=== PATIENT | male | born 1970 | race American Indian/Alaskan Native ===

== ENCOUNTER 2020-08-10 03:48 | Emergency (ER) | payer SELFPAY ==
--- NOTE | 2020-08-10 04:25 | Event Note ---
ED Screening Note ED Screening Note: Patient was discovered to be in altered stated per EMS after eating edibles. Patient prefers to sleep at this time. Will not cooperate with history. He is protecting airway. Vital signs are stable. Screening exam performed and completed. NO indication of emergent condition at this time. Will keep patient on monitor. This initial assessment/diagnostic orders/clinical plan/treatment(s) is/are subject to change based on patients health status, clinical progression and re- assessment by fellow clinical providers in the ED. Further treatment and workup at subsequent clinical providers discretion. Patient/guardian urged not to elope from the ED as their condition may be serious if not clinically assessed and managed. Initial orders include: cardiac/pulse ox monitoring.
[2020-08-10] MEDS ORDERED: SODIUM CHLORIDE 0.9% 1000 ML 1,000 ML IV ONE ×2 (07:22→08:29)
[2020-08-10] MEDS ORDERED: LORazepam 2 MG/ML VIAL IV ONE ×2 (07:35→09:42)
[2020-08-10] MEDS ORDERED: SUCCINYLCHOLINE CHLORIDE 200 MG/10 ML INJ MDV ONE (07:47)
[2020-08-10] MEDS ORDERED: ETOMIDATE 20 MG/10 ML INJ IV ONE ×2 (07:47→08:10)
[2020-08-10] MEDS ORDERED: LORazepam 2 MG/ML VIAL ONE (07:48)
[2020-08-10] MEDS ORDERED: SUCCINYLCHOLINE CHLORIDE 200 MG/10 ML INJ MDV IV ONE (08:00)
[2020-08-10 08:03] LABS: Basophils % (Auto) 0.3 % (0.0-1.8); Eosinophils % (Auto) 0.1 % (0.0-4.3); Hematocrit 37.8 % (35.5-45.6); Hemoglobin 13.1 gm/dl (11.8-15.2); Lymphocytes # (Auto) 0.4 K/mm3 (1.2-5.4); Lymphocytes % (Auto) 5.3 % (13.4-35.0); Mean Corpuscular HGB Conc 35 % (32-34); Mean Corpuscular Volume 89 fl (84-94); Monocytes # (Auto) 0.4 K/mm3 (0.0-0.8); Monocytes % (Auto) 5.2 % (0.0-7.3); Platelet Count 187 K/mm3 (140-440); Red Blood Count 4.24 M/mm3 (3.65-5.03); Red Cell Distribution Width 12.6 % (13.2-15.2)
[2020-08-10] MEDS ORDERED: LIP THERAPY VASELINE TP PRN (08:14)
[2020-08-10] MEDS ORDERED: MINERAL OIL/PETROLATUM, WHITE OPHTH OINT 3.5 GM OU PRN (08:14)
[2020-08-10 08:15] LABS: INR 1.18 (0.87-1.13)
[2020-08-10 08:23] LABS: Alanine Aminotransferase 39 units/L (7-56); Albumin 3.8 g/dL (3.9-5); BUN/Creatinine Ratio 12; Bilirubin,Direct 0.2 mg/dL (0-0.2); Blood Urea Nitrogen 6 mg/dL (9-20); Calcium 7.7 mg/dL (8.4-10.2); Hemolysis Index 22
--- NOTE | 2020-08-10 08:27 | Emergency Department Report ---
ED Altered Mental Status HPI - General Chief Complaint: Altered Mental Status Stated Complaint: AMS/DRUG INGESTED Time Seen by Provider: 08/10/20 04:23 Source: EMS Mode of arrival: Stretcher Limitations: Altered Mental Status - History of Present Illness Initial Comments: This is a 49-year-old male who arrived at or about 4 AM this morning. He was presumed to have had an edible cannabinol ingestion. He was screened by the prior emergency physician but no initial medical screening tests were ordered. It would appear staff was waiting on sobriety: ED Screening Note: Patient was discovered to be in altered stated per EMS after eating edibles. Patient prefers to sleep at this time. Will not cooperate with history. He is protecting airway. Vital signs are stable. Screening exam performed and completed. NO indication of emergent condition at this time. Will keep patient on monitor. I did not receive a specific signout or advisory. On my initial evaluation, the patient was quite lethargic; an altered mental status work-up was ordered. Laboratory work-up and CT of the head was pending. Apparently, the patient would not cooperate with phlebotomy. I was not informed of this problem with the blood draw. On patient reassessment, he appeared to be more obtunded albeit agitated. He was noted to have a PROFESSOR OF ENGLISH shunt. It was decided that elective intubation was necessary to facilitate CT and further medical care. No further information concerning the patient's past medical history was available. No records were found in our EMR system. MD Complaint: altered mental status -: hour(s) Severity: severe Consistency of Symptoms: getting worse Context: drug abuse Associated Symptoms: other (Unable to obtain) - Related Data Allergies Allergy/AdvReac Type Severity Reaction Status Date / Time No Known Allergies Allergy Unverified 08/10/20 08:37 ED Review of Systems ROS: Stated complaint: AMS/DRUG INGESTED Other details as noted in HPI Comment: Unobtainable due to pts medical conditions ED Past Medical Hx - Past Medical History Previous Medical History?: Yes - Social History Smoking Status: Unknown if ever smoked Substance Use Type: Marijuana ED Physical Exam - General Limitations: Altered Mental Status General appearance: obtunded - Head Head exam: Present: atraumatic, normocephalic - Eye Eye exam: Present: normal appearance. Absent: scleral icterus - ENT ENT exam: Present: mucous membranes moist - Neck Neck exam: Present: normal inspection - Respiratory Respiratory exam: Present: normal lung sounds bilaterally. Absent: respiratory distress - Cardiovascular Cardiovascular Exam: Present: regular rate, normal rhythm. Absent: systolic murmur, diastolic murmur, rubs, gallop - GI/Abdominal GI/Abdominal exam: Present: soft, normal bowel sounds. Absent: distended, tenderness, guarding - Rectal Rectal exam: Present: deferred - Extremities Exam Extremities exam: Present: normal inspection. Absent: calf tenderness - Back Exam Back exam: Present: other (Did not visualize) - Neurological Exam Neurological exam: Present: alert, altered, other (Examination appeared to be nonfocal on limited neuro exam. Teleneurologist gave the patient an NIH stroke score of 30) - Psychiatric Psychiatric exam: Present: agitated - Skin Skin exam: Present: warm, dry, intact, normal color. Absent: rash - Level of Consciousness 1a. Level of Consciousness: alert/keenly responsive - LOC Questions 1b. LOC Questions: answers no questions correctly - LOC Command 1c. LOC Commands: performs no tasks correctly - Best Gaze 2. Best Gaze: forced deviation - Visual 3. Visual: no visual loss - Facial Palsy 4. Facial Palsy: normal symmetrical movement - Motor Arm 5a. Motor Arm Left: no drift 5b. Motor Arm Right: no drift - Motor Leg 6a. Motor Leg Left: no drift 6b. Motor Leg Right: no drift (Disregard the above stroke scoring. Stroke is not suspected.) - Limb Ataxia 7. Limb Ataxia: absent - Sensory 8. Sensory: normal - Best Language 9. Best Language: no aphasia - Dysarthria 10. Dysarthria: normal - Extinction and Inattention 11. Extinction/Inattention: no abnormality - Scoring Total Score: 6 Stroke Severity: Moderate Stroke ED Course Vital Signs 08/10/20 08/10/20 08/10/20 04:12 07:01 07:17 Pulse Rate 75 75 76 Respiratory 16 20 20 Rate Blood Pressure Blood Pressure 109/62 124/55 [Right] O2 Sat by Pulse 98 98 95 Oximetry 08/10/20 08/10/20 08/10/20 07:20 07:42 07:45 Pulse Rate 75 69 Respiratory 17 Rate Blood Pressure Blood Pressure [Right] O2 Sat by Pulse 98 Oximetry 08/10/20 08/10/20 08/10/20 08:35 09:00 09:32 Pulse Rate 86 79 90 Respiratory 20 18 Rate Blood Pressure 135/72 Blood Pressure 167/90 [Right] O2 Sat by Pulse 98 98 Oximetry 08/10/20 08/10/20 08/10/20 09:45 10:00 10:04 Pulse Rate 92 H 94 H Respiratory 16 21 22 Rate Blood Pressure 127/103 102/82 Blood Pressure [Right] O2 Sat by Pulse 98 Oximetry 08/10/20 08/10/20 08/10/20 10:15 10:30 10:45 Pulse Rate 96 H 103 H Respiratory 18 20 Rate Blood Pressure 140/102 86/67 151/94 Blood Pressure [Right] O2 Sat by Pulse Oximetry - Reevaluation(s) Reevaluation #1: Teleneurologist stroke score. However stroke is not suspected. I do not think it is largely applicable. # Scores Time of exam and NIHSS (): 08-10-2020, 06:48 Level of Consciousness 1a: [3] = Responds only with reflex motor or unresponsive LOC Questions 1b: [2] = Answers neither correctly LOC Commands 1c: [2] = Performs neither correctly Best Gaze 2: [2] = Forced deviation Visual 3: [0] = No visual loss Facial Palsy 4: [0] = Normal symmetrical movements Motor Arm Left 5a: [4] = No movement Motor Arm Right 5b: [4] = No movement Motor Leg Left 6a: [4] = No movement Motor Leg Right 6b: [4] = No movement Limb Ataxia 7: [0] = Absent Sensory 8: [2] = Severe to total sensory loss Best Language 9: [3] = Mute Dysarthria 10: [0] UN = Intubated or other physical barrier NIHSS Total: 30 08/10/20 11:40 Reevaluation #2: Chest x-ray did show a left-sided patch consistent with no pneumonia. The patient was found to have a lactic acid level of over 5. He was given a bolus of saline. Cefepime and vancomycin were ordered. Vancomycin was not received by the pharmacy by the time of patient transfer. He did get the cefepime. Endotracheal tube was in good position. Patient was closely monitored. The nurse did have some blood pressure lability with propofol but discontinuance was not required. At the moment of transfer the patient's blood pressure was trending down and the nurse informed me that she shut off the propofol. I directed her to give the patient 2 mg of Ativan IV prior to transport which I believe was given. I spoke initially with the neuro editorial writer at [facility]. They did not have beds there ultimately I spoke with Dr. Bedoya the neuro editorial writer at [facility]. He was very kind to accept this patient for further care and evaluation in the neurointensive unit. I did receive a consult by the teleneurologist who stated that he could not exclude increased intracranial pressure on the basis of his interpretation of the CT and clinical exam. However the radiologist did read the CT as showing no acute process. On reassessment the patient"s pupils were perhaps slightly mydriatic but they were clearly reactive to light bilaterally. There was no disconjugate gaze or deviation at all. Patient was moving all of his extremities. Therefore additional sedation was judicious prior to transfer. He remained in soft wrist restraints. 08/10/20 11:54 - Intubation Time Out Performed: No Sedative: Etomidate Paralytic: Succinylcholine Laryngoscope: Damion Size: 4 Assist Device Used: other ([place] scope) Tube Secured Depth (cm): 24 Tube Secured Location: teeth Tube Placement Confirmation: visualized tube passing t Patient Tolerated Procedure: well Intubation Complications: none Additional Comments: Initial attempt was direct laryngoscopy with MAC 4 blade. However even to maximum length only the epiglottis was seen. This is not improved by cricoid pressure. There was no deoxygenation whatsoever. Patient had Ambu bag assistance. We proceeded to glide scope technique directly. A single attempt achieve very good glottic visualization and intubation without difficulty. The tube was secured at 24 cm at the teeth. Positive end-tidal CO2 and bilateral breath sounds were noted. - Lab Data Result diagrams: 08/10/20 07:48 08/10/20 10:16 Lab Results 08/10/20 08/10/20 08/10/20 Range/Units 07:44 07:48 07:48 WBC 7.8 (4.5-11.0) K/mm3 RBC 4.24 (3.65-5.03) M/mm3 Hgb 13.1 (11.8-15.2) gm/dl Hct 37.8 (35.5-45.6) % MCV 89 (84-94) fl MCH 31 (28-32) pg MCHC 35 H (32-34) % RDW 12.6 L (13.2-15.2) % Plt Count 187 (140-440) K/mm3 Lymph % (Auto) 5.3 L (13.4-35.0) % [place] % (Auto) 5.2 (0.0-7.3) % Eos % (Auto) 0.1 (0.0-4.3) % Baso % (Auto) 0.3 (0.0-1.8) % Lymph # (Auto) 0.4 L (1.2-5.4) K/mm3 [place] # (Auto) 0.4 (0.0-0.8) K/mm3 Eos # (Auto) 0.0 (0.0-0.4) K/mm3 Baso # (Auto) 0.0 (0.0-0.1) K/mm3 Seg Neutrophils % 89.1 H (40.0-70.0) % Seg Neutrophils # 7.0 (1.8-7.7) K/mm3 PT 14.8 (12.2-14.9) Sec. INR 1.18 H (0.87-1.13) APTT 29.0 (24.2-36.6) Sec. ABG pH (7.350-7.450) pH Units ABG pCO2 mm Hg ABG pO2 (80.0-90.0) mm Hg ABG HCO3 (20.0-26.0) mmol/L ABG O2 Saturation (95.0-99.0) % ABG O2 Content (0.0-44) ABG Base Excess (-2.0-3.0) mmol/L ABG Hemoglobin (14.0-18.0) gm/dl ABG Carboxyhemoglobin (0.0-5.0) % ABG Methemoglobin (0.0-1.5) % Oxyhemoglobin (95.0-99.0) % FiO2 % Sodium (137-145) mmol/L Potassium (3.6-5.0) mmol/L Chloride (98-107) mmol/L Carbon Dioxide (22-30) mmol/L Anion Gap mmol/L BUN (9-20) mg/dL Creatinine (0.8-1.3) mg/dL Estimated GFR ml/min BUN/Creatinine Ratio % Glucose (75-100) mg/dL POC Glucose 117 H (70-105) mg/dL Lactic Acid (0.7-2.0) mmol/L Calcium (8.4-10.2) mg/dL Total Bilirubin (0.1-1.2) mg/dL Direct Bilirubin (0-0.2) mg/dL Indirect Bilirubin mg/dL AST (5-40) units/L ALT (7-56) units/L Alkaline Phosphatase (35-129) units/L Total Creatine Kinase (55-170) units/L Total Protein (6.3-8.2) g/dL Albumin (3.9-5) g/dL Albumin/Globulin Ratio % Urine Color (Yellow) Urine Turbidity (Clear) Urine pH (5.0-7.0) Ur Specific [place] (1.003-1.030) Urine Protein (Negative) mg/dL Urine Glucose (UA) (Negative) mg/dL Urine Ketones (Negative) mg/dL Urine Blood (Negative) Urine Nitrite (Negative) Urine Bilirubin (Negative) Urine Urobilinogen (<2.0) mg/dL Ur Leukocyte Esterase (Negative) Urine WBC (Auto) (0.0-6.0) /HPF Urine RBC (Auto) (0.0-6.0) /HPF Salicylates (2.8-20.0) mg/dL Urine Opiates Screen Urine Methadone Screen Acetaminophen (10.0-30.0) ug/mL Ur Barbiturates Screen Ur Phencyclidine Scrn Ur Amphetamines Screen U Benzodiazepines Scrn Urine Cocaine Screen U Marijuana (THC) Screen Drugs of Abuse Note Plasma/Serum Alcohol (0-0.07) % 08/10/20 08/10/20 08/10/20 Range/Units 07:48 07:48 07:48 WBC (4.5-11.0) K/mm3 RBC (3.65-5.03) M/mm3 Hgb (11.8-15.2) gm/dl Hct (35.5-45.6) % MCV (84-94) fl MCH (28-32) pg MCHC (32-34) % RDW (13.2-15.2) % Plt Count (140-440) K/mm3 Lymph % (Auto) (13.4-35.0) % [place] % (Auto) (0.0-7.3) % Eos % (Auto) (0.0-4.3) % Baso % (Auto) (0.0-1.8) % Lymph # (Auto) (1.2-5.4) K/mm3 [place] # (Auto) (0.0-0.8) K/mm3 Eos # (Auto) (0.0-0.4) K/mm3 Baso # (Auto) (0.0-0.1) K/mm3 Seg Neutrophils % (40.0-70.0) % Seg Neutrophils # (1.8-7.7) K/mm3 PT (12.2-14.9) Sec. INR (0.87-1.13) APTT (24.2-36.6) Sec. ABG pH (7.350-7.450) pH Units ABG pCO2 mm Hg ABG pO2 (80.0-90.0) mm Hg ABG HCO3 (20.0-26.0) mmol/L ABG O2 Saturation (95.0-99.0) % ABG O2 Content (0.0-44) ABG Base Excess (-2.0-3.0) mmol/L ABG Hemoglobin (14.0-18.0) gm/dl ABG Carboxyhemoglobin (0.0-5.0) % ABG Methemoglobin (0.0-1.5) % Oxyhemoglobin (95.0-99.0) % FiO2 % Sodium 111 L* (137-145) mmol/L Potassium 3.9 (3.6-5.0) mmol/L Chloride 75.5 L (98-107) mmol/L Carbon Dioxide 23 (22-30) mmol/L Anion Gap 16 mmol/L BUN 6 L (9-20) mg/dL Creatinine 0.5 L (0.8-1.3) mg/dL Estimated GFR > 60 ml/min BUN/Creatinine Ratio 12 % Glucose 133 H (75-100) mg/dL POC Glucose (70-105) mg/dL Lactic Acid (0.7-2.0) mmol/L Calcium 7.7 L (8.4-10.2) mg/dL Total Bilirubin 2.00 H (0.1-1.2) mg/dL Direct Bilirubin 0.2 (0-0.2) mg/dL Indirect Bilirubin 1.8 mg/dL AST 64 H (5-40) units/L ALT 39 (7-56) units/L Alkaline Phosphatase 61 (35-129) units/L Total Creatine Kinase 2817 H (55-170) units/L Total Protein 6.5 (6.3-8.2) g/dL Albumin 3.8 L (3.9-5) g/dL Albumin/Globulin Ratio 1.4 % Urine Color (Yellow) Urine Turbidity (Clear) Urine pH (5.0-7.0) Ur Specific [place] (1.003-1.030) Urine Protein (Negative) mg/dL Urine Glucose (UA) (Negative) mg/dL Urine Ketones (Negative) mg/dL Urine Blood (Negative) Urine Nitrite (Negative) Urine Bilirubin (Negative) Urine Urobilinogen (<2.0) mg/dL Ur Leukocyte Esterase (Negative) Urine WBC (Auto) (0.0-6.0) /HPF Urine RBC (Auto) (0.0-6.0) /HPF Salicylates < 0.3 L (2.8-20.0) mg/dL Urine Opiates Screen Urine Methadone Screen Acetaminophen < 5.0 L (10.0-30.0) ug/mL Ur Barbiturates Screen Ur Phencyclidine Scrn Ur Amphetamines Screen U Benzodiazepines Scrn Urine Cocaine Screen U Marijuana (THC) Screen Drugs of Abuse Note Plasma/Serum Alcohol (0-0.07) % 08/10/20 08/10/20 08/10/20 Range/Units 07:48 08:00 09:05 WBC (4.5-11.0) K/mm3 RBC (3.65-5.03) M/mm3 Hgb (11.8-15.2) gm/dl Hct (35.5-45.6) % MCV (84-94) fl MCH (28-32) pg MCHC (32-34) % RDW (13.2-15.2) % Plt Count (140-440) K/mm3 Lymph % (Auto) (13.4-35.0) % [place] % (Auto) (0.0-7.3) % Eos % (Auto) (0.0-4.3) % Baso % (Auto) (0.0-1.8) % Lymph # (Auto) (1.2-5.4) K/mm3 [place] # (Auto) (0.0-0.8) K/mm3 Eos # (Auto) (0.0-0.4) K/mm3 Baso # (Auto) (0.0-0.1) K/mm3 Seg Neutrophils % (40.0-70.0) % Seg Neutrophils # (1.8-7.7) K/mm3 PT (12.2-14.9) Sec. INR (0.87-1.13) APTT (24.2-36.6) Sec. ABG pH 7.435 (7.350-7.450) pH Units ABG pCO2 29.2 mm Hg ABG pO2 326.4 H (80.0-90.0) mm Hg ABG HCO3 19.2 L (20.0-26.0) mmol/L ABG O2 Saturation 99.5 H (95.0-99.0) % ABG O2 Content 18.9 (0.0-44) ABG Base Excess -3.9 L (-2.0-3.0) mmol/L ABG Hemoglobin 13.1 L (14.0-18.0) gm/dl ABG Carboxyhemoglobin 0.7 (0.0-5.0) % ABG Methemoglobin 0.6 (0.0-1.5) % Oxyhemoglobin 98.3 (95.0-99.0) % FiO2 100 % Sodium (137-145) mmol/L Potassium (3.6-5.0) mmol/L Chloride (98-107) mmol/L Carbon Dioxide (22-30) mmol/L Anion Gap mmol/L BUN (9-20) mg/dL Creatinine (0.8-1.3) mg/dL Estimated GFR ml/min BUN/Creatinine Ratio % Glucose (75-100) mg/dL POC Glucose (70-105) mg/dL Lactic Acid 5.60 H* (0.7-2.0) mmol/L Calcium (8.4-10.2) mg/dL Total Bilirubin (0.1-1.2) mg/dL Direct Bilirubin (0-0.2) mg/dL Indirect Bilirubin mg/dL AST (5-40) units/L ALT (7-56) units/L Alkaline Phosphatase (35-129) units/L Total Creatine Kinase (55-170) units/L Total Protein (6.3-8.2) g/dL Albumin (3.9-5) g/dL Albumin/Globulin Ratio % Urine Color (Yellow) Urine Turbidity (Clear) Urine pH (5.0-7.0) Ur Specific [place] (1.003-1.030) Urine Protein (Negative) mg/dL Urine Glucose (UA) (Negative) mg/dL Urine Ketones (Negative) mg/dL Urine Blood (Negative) Urine Nitrite (Negative) Urine Bilirubin (Negative) Urine Urobilinogen (<2.0) mg/dL Ur Leukocyte Esterase (Negative) Urine WBC (Auto) (0.0-6.0) /HPF Urine RBC (Auto) (0.0-6.0) /HPF Salicylates (2.8-20.0) mg/dL Urine Opiates Screen Urine Methadone Screen Acetaminophen (10.0-30.0) ug/mL Ur Barbiturates Screen Ur Phencyclidine Scrn Ur Amphetamines Screen U Benzodiazepines Scrn Urine Cocaine Screen U Marijuana (THC) Screen Drugs of Abuse Note Plasma/Serum Alcohol < 0.01 (0-0.07) % 08/10/20 08/10/20 08/10/20 Range/Units 09:12 09:29 09:29 WBC (4.5-11.0) K/mm3 RBC (3.65-5.03) M/mm3 Hgb (11.8-15.2) gm/dl Hct (35.5-45.6) % MCV (84-94) fl MCH (28-32) pg MCHC (32-34) % RDW (13.2-15.2) % Plt Count (140-440) K/mm3 Lymph % (Auto) (13.4-35.0) % [place] % (Auto) (0.0-7.3) % Eos % (Auto) (0.0-4.3) % Baso % (Auto) (0.0-1.8) % Lymph # (Auto) (1.2-5.4) K/mm3 [place] # (Auto) (0.0-0.8) K/mm3 Eos # (Auto) (0.0-0.4) K/mm3 Baso # (Auto) (0.0-0.1) K/mm3 Seg Neutrophils % (40.0-70.0) % Seg Neutrophils # (1.8-7.7) K/mm3 PT (12.2-14.9) Sec. INR (0.87-1.13) APTT (24.2-36.6) Sec. ABG pH (7.350-7.450) pH Units ABG pCO2 mm Hg ABG pO2 (80.0-90.0) mm Hg ABG HCO3 (20.0-26.0) mmol/L ABG O2 Saturation (95.0-99.0) % ABG O2 Content (0.0-44) ABG Base Excess (-2.0-3.0) mmol/L ABG Hemoglobin (14.0-18.0) gm/dl ABG Carboxyhemoglobin (0.0-5.0) % ABG Methemoglobin (0.0-1.5) % Oxyhemoglobin (95.0-99.0) % FiO2 % Sodium (137-145) mmol/L Potassium (3.6-5.0) mmol/L Chloride (98-107) mmol/L Carbon Dioxide (22-30) mmol/L Anion Gap mmol/L BUN (9-20) mg/dL Creatinine (0.8-1.3) mg/dL Estimated GFR ml/min BUN/Creatinine Ratio % Glucose (75-100) mg/dL POC Glucose (70-105) mg/dL Lactic Acid 5.50 H* (0.7-2.0) mmol/L Calcium (8.4-10.2) mg/dL Total Bilirubin (0.1-1.2) mg/dL Direct Bilirubin (0-0.2) mg/dL Indirect Bilirubin mg/dL AST (5-40) units/L ALT (7-56) units/L Alkaline Phosphatase (35-129) units/L Total Creatine Kinase (55-170) units/L Total Protein (6.3-8.2) g/dL Albumin (3.9-5) g/dL Albumin/Globulin Ratio % Urine Color Straw (Yellow) Urine Turbidity Clear (Clear) Urine pH 6.0 (5.0-7.0) Ur Specific [place] 1.008 (1.003-1.030) Urine Protein <15 mg/dl (Negative) mg/dL Urine Glucose (UA) 150 (Negative) mg/dL Urine Ketones Neg (Negative) mg/dL Urine Blood Mod (Negative) Urine Nitrite Neg (Negative) Urine Bilirubin Neg (Negative) Urine Urobilinogen < 2.0 (<2.0) mg/dL Ur Leukocyte Esterase Neg (Negative) Urine WBC (Auto) 1.0 (0.0-6.0) /HPF Urine RBC (Auto) < 1.0 (0.0-6.0) /HPF Salicylates (2.8-20.0) mg/dL Urine Opiates Screen Negative Urine Methadone Screen Negative Acetaminophen (10.0-30.0) ug/mL Ur Barbiturates Screen Negative Ur Phencyclidine Scrn Negative Ur Amphetamines Screen Negative U Benzodiazepines Scrn Negative Urine Cocaine Screen Negative U Marijuana (THC) Screen Positive Drugs of Abuse Note Disclamer Plasma/Serum Alcohol (0-0.07) % 08/10/20 08/10/20 Range/Units 10:16 10:16 WBC (4.5-11.0) K/mm3 RBC (3.65-5.03) M/mm3 Hgb (11.8-15.2) gm/dl Hct (35.5-45.6) % MCV (84-94) fl MCH (28-32) pg MCHC (32-34) % RDW (13.2-15.2) % Plt Count (140-440) K/mm3 Lymph % (Auto) (13.4-35.0) % [place] % (Auto) (0.0-7.3) % Eos % (Auto) (0.0-4.3) % Baso % (Auto) (0.0-1.8) % Lymph # (Auto) (1.2-5.4) K/mm3 [place] # (Auto) (0.0-0.8) K/mm3 Eos # (Auto) (0.0-0.4) K/mm3 Baso # (Auto) (0.0-0.1) K/mm3 Seg Neutrophils % (40.0-70.0) % Seg Neutrophils # (1.8-7.7) K/mm3 PT (12.2-14.9) Sec. INR (0.87-1.13) APTT (24.2-36.6) Sec. ABG pH (7.350-7.450) pH Units ABG pCO2 mm Hg ABG pO2 (80.0-90.0) mm Hg ABG HCO3 (20.0-26.0) mmol/L ABG O2 Saturation (95.0-99.0) % ABG O2 Content (0.0-44) ABG Base Excess (-2.0-3.0) mmol/L ABG Hemoglobin (14.0-18.0) gm/dl ABG Carboxyhemoglobin (0.0-5.0) % ABG Methemoglobin (0.0-1.5) % Oxyhemoglobin (95.0-99.0) % FiO2 % Sodium 118 L* D (137-145) mmol/L Potassium 4.2 (3.6-5.0) mmol/L Chloride 83.1 L (98-107) mmol/L Carbon Dioxide 24 (22-30) mmol/L Anion Gap 15 mmol/L BUN 6 L (9-20) mg/dL Creatinine 0.4 L (0.8-1.3) mg/dL Estimated GFR > 60 ml/min BUN/Creatinine Ratio 15 % Glucose 112 H (75-100) mg/dL POC Glucose (70-105) mg/dL Lactic Acid 3.60 H* (0.7-2.0) mmol/L Calcium 7.4 L (8.4-10.2) mg/dL Total Bilirubin (0.1-1.2) mg/dL Direct Bilirubin (0-0.2) mg/dL Indirect Bilirubin mg/dL AST (5-40) units/L ALT (7-56) units/L Alkaline Phosphatase (35-129) units/L Total Creatine Kinase (55-170) units/L Total Protein (6.3-8.2) g/dL Albumin (3.9-5) g/dL Albumin/Globulin Ratio % Urine Color (Yellow) Urine Turbidity (Clear) Urine pH (5.0-7.0) Ur Specific [place] (1.003-1.030) Urine Protein (Negative) mg/dL Urine Glucose (UA) (Negative) mg/dL Urine Ketones (Negative) mg/dL Urine Blood (Negative) Urine Nitrite (Negative) Urine Bilirubin (Negative) Urine Urobilinogen (<2.0) mg/dL Ur Leukocyte Esterase (Negative) Urine WBC (Auto) (0.0-6.0) /HPF Urine RBC (Auto) (0.0-6.0) /HPF Salicylates (2.8-20.0) mg/dL Urine Opiates Screen Urine Methadone Screen Acetaminophen (10.0-30.0) ug/mL Ur Barbiturates Screen Ur Phencyclidine Scrn Ur Amphetamines Screen U Benzodiazepines Scrn Urine Cocaine Screen U Marijuana (THC) Screen Drugs of Abuse Note Plasma/Serum Alcohol (0-0.07) % - EKG Data -: EKG Interpreted by Nh EKG shows normal: sinus rhythm, axis, intervals, QRS complexes, ST-T waves Rate: normal Interpretation: nonspecific ST-T wave jag - Radiology Data Radiology results: image reviewed CHEST 1 VIEW 08/10/2020 8:50 AM INDICATION / CLINICAL INFORMATION: Shortness of breath, ET tube and Dobbhoff tube placement. COMPARISON: None available. FINDINGS: SUPPORT DEVICES: The tip of the ET tube is located 4.6 cm above the cee. An NG tube is coiled within the stomach and terminates laterally along the gastric fundus. HEART / MEDIASTINUM: No significant abnormality. LUNGS / PLEURA: Lingular/left lower lobe airspace opacities are seen with milder interstitial opacities along the remainder of the left lung. The right lung is clear. No significant pleural effusion. No pneumothorax. ADDITIONAL FINDINGS: No significant additional findings. IMPRESSION: 1. ET and NG tube as above. 2. Probable left pneumonia. Continued radiographic follow-up to resolution is recommended. Signer Name: Vu Lau MD Signed: 08/10/2020 9:17 AM Workstation Name: [id number] Transcribed By: JANI Dictated By: Vu Lau MD Electronically Authenticated By: Vu Lau MD Signed Date/Time: 08/10/[address] the head no acute process per radiologist Critical Care Time: Yes Critical care time in (mins) excluding proc time.: 120 Critical care attestation.: If time is entered above; I have spent that time in minutes in the direct care of this critically ill patient, excluding procedure time. ED Disposition Clinical Impression: Acute metabolic encephalopathy, Hyponatremia, Hypochloremia, PROFESSOR OF ENGLISH (ventri culoperitoneal) shunt status Altered mental status Qualifiers: Altered mental status type: coma Coma depth: Shaylee coma 9-12 Coma timing: at hospital admission Qualified Code(s): R40.2423 - Jenera coma scale score 9-12, at hospital admission Pneumonia involving left lung Qualifiers: Pneumonia type: due to unspecified organism Lung location: unspecified part of lung Qualified Code(s): J18.9 - Pneumonia, unspecified organism Disposition: DC/TX-70 ANOTHER TYPE HLTHCARE Is pt being admited?: No Does the pt Need Aspirin: No Condition: Stable Instructions: Bacterial Pneumonia (ED) Referrals: PRIMARY CARE, [Primary Care Provider] - 3-5 Days Time of Disposition: 11:59
[2020-08-10] MEDS ORDERED: PANTOPRAZOLE 40 MG INJ IV ONE (08:29)
--- NOTE | 2020-08-10 08:42 | Cat Scan Report ---
CT HEAD WITHOUT CONTRAST INDICATION : AMS. TECHNIQUE: Axial, coronal and sagittal CT imaging was performed from the skull apex through the skul l base without contrast. All CT scans at this location are performed using CT dose reduction for ALA RA by means of automated exposure control. COMPARISON: None available. FINDINGS: PARENCHYMA: No mass, midline shift, hemorrhage, extraaxial collection or acute territorial infarctio n. Osmany cisterna magna is noted. VENTRICLES: There is symmetric moderate enlargement of the lateral ventricles with expected position ing of a right posterior parietal ventricular shunt that terminates medially along the body of the ri ght lateral ventricle. The remaining ventricles are normal in size. SOFT TISSUES: No significant abnormality of the included soft tissues/orbits. BONES: No acute osseous abnormality. SINUSES: No significant abnormality. ADDITIONAL FINDINGS: None. IMPRESSION: 1. No acute intracranial abnormality. 2. Additional findings as above. Signer Name: Vu Lau MD Signed: 08/10/2020 8:38 AM Workstation Name: [id number]
[2020-08-10] MEDS ORDERED: levETIRAcetam 1000 MG/NS 0.75% 1,000 MG/100 ML BAG IV ONE (08:56)
--- NOTE | 2020-08-10 08:59 | Consultation ---
History of Present Illness History of present illness: [place] [facility] Consult Note # Demographics Consult Type: ED Teleneuro First Name: Robert Last Name: Ramy Date of : 1970 Age: 49 Gender: male Time of initial page (Arjay ): 08-10-2020, 06:42 Time of return call (Arjay ): 08-10-2020, 06:42 # HPI Additional History: 49M with TRANSACTION PROCESSOR shunt who presents with AMS after eating cannabinoids. Intubated for airway protection. Hyponatremic to 111 with hypochloremia to 75. # Scores Time of exam and NIHSS ([facility]): 08-10-2020, 06:48 Level of Consciousness 1a: [3] = Responds only with reflex motor or unresponsive LOC Questions 1b: [2] = Answers neither correctly LOC Commands 1c: [2] = Performs neither correctly Best Gaze 2: [2] = Forced deviation Visual 3: [0] = No visual loss Facial Palsy 4: [0] = Normal symmetrical movements Motor Arm Left 5a: [4] = No movement Motor Arm Right 5b: [4] = No movement Motor Leg Left 6a: [4] = No movement Motor Leg Right 6b: [4] = No movement Limb Ataxia 7: [0] = Absent Sensory 8: [2] = Severe to total sensory loss Best Language 9: [3] = Mute Dysarthria 10: [0] UN = Intubated or other physical barrier NIHSS Total: 30 # Exam Additional Neuro Exam: Pupils enlarged and not reactive Downgaze present. # Data Time Head CT personally ready by me (Arjay ): 08-10-2020, 06:[address]: preliminarily reviewed by me, please refer to radiology read for official reading, TRANSACTION PROCESSOR shunt in place with apparent hydrocephalus and sulcal crowding # Assessment Impression: r/o shunt failure and acute hydrocephalus Hyponatreia/hypochloremia with possible metabolic encephalopathy # Plan Thrombolytic/Intervention: NOT IV Alteplase or IA Intervention Alteplase/Intraarterial Exclusion: IV alteplase and IA intervention considered but not recommended as this patient's symptoms are not clinically consistent with an assumed diagnosis of stroke Medication: acutely raise sodium by 3-4 mmol then continue slow correction Additional Recommendations: transfer for neurosurgical evaluation Disposition: transfer # Logistics Telemedicine: Interactive 2 way audio and visual telecommunication technology was utilized during this visit Medications and Allergies Allergies Allergy/AdvReac Type Severity Reaction Status Date / Time No Known Allergies Allergy Unverified 08/10/20 08:37 Active Meds: Active Medications Hydrophilic Ointment (Lip Therapy Vaseline) 1 applic TP Q2HR PRN PRN Reason: Dry Lips Propofol (Diprivan 10 Mg/Ml) 1,000 mg in 100 mls @ 1.734 mls/hr IV TITR PHILIPPE; Protocol Sodium Chloride (Nacl 0.9% 1000 Ml) 1,000 mls @ 999 mls/hr IV BOLUS ONE Stop: 08/10/20 09:29 Levetiracetam (Keppra 1,000 Mg/Ns 0.75% 100ml) 1,000 mg in 100 mls @ 400 mls/hr IV ONCE ONE Stop: 08/10/20 09:10 Multi-Ingred Cream/Lotion/Oil/Oint (Mineral Oil/Petrolatum, White Ophth Oint 3.5 Gm) 1 applic OU Q4HR PRN PRN Reason: Dry Eye(s) Physical Examination - Vital Signs Vital Signs: Vital Signs Pulse Resp BP Pulse Ox 75 16 109/62 98 08/10/20 04:12 08/10/20 04:12 08/10/20 04:12 08/10/20 04:12 Results - Laboratory Findings CBC and BMP: 08/10/20 07:48 08/10/20 07:48 Abnormal Lab Findings: Abnormal Labs 08/10/20 08/10/20 08/10/20 07:48 07:48 07:48 MCHC 35 H RDW 12.6 L Lymph % (Auto) 5.3 L Lymph # (Auto) 0.4 L Seg Neutrophils % 89.1 H INR 1.18 H Sodium 111 L* Chloride 75.5 L BUN 6 L Creatinine 0.5 L Glucose 133 H Lactic Acid Calcium 7.7 L Total Bilirubin 2.00 H AST 64 H Total Creatine Kinase 2817 H Albumin 3.8 L Salicylates Acetaminophen 08/10/20 08/10/20 08/10/20 07:48 07:48 08:00 MCHC RDW Lymph % (Auto) Lymph # (Auto) Seg Neutrophils % INR Sodium Chloride BUN Creatinine Glucose Lactic Acid 5.60 H* Calcium Total Bilirubin AST Total Creatine Kinase Albumin Salicylates < 0.3 L Acetaminophen < 5.0 L
[2020-08-10 09:11] LABS: ABG Base Excess -3.9 mmol/L (-2.0-3.0); ABG HCO3 19.2 mmol/L (20.0-26.0); ABG Methemoglobin 0.6 % (0.0-1.5); ABG Oxygen Saturation 99.5 % (95.0-99.0); ABG PCO2 29.2 mm Hg; ABG PH 7.435 pH Units (7.350-7.450); ABG PO2 326.4 mm Hg (80.0-90.0)
--- NOTE | 2020-08-10 09:21 | XRay Report ---
CHEST 1 VIEW 08/10/2020 8:50 AM INDICATION / CLINICAL INFORMATION: Shortness of breath, ET tube and Dobbhoff tube placement. COMPARISON: None available. FINDINGS: SUPPORT DEVICES: The tip of the ET tube is located 4.6 cm above the cee. An NG tube is coiled with in the stomach and terminates laterally along the gastric fundus. HEART / MEDIASTINUM: No significant abnormality. LUNGS / PLEURA: Lingular/left lower lobe airspace opacities are seen with milder interstitial opaciti es along the remainder of the left lung. The right lung is clear. No significant pleural effusion. No pneumothorax. ADDITIONAL FINDINGS: No significant additional findings. IMPRESSION: 1. ET and NG tube as above. 2. Probable left pneumonia. Continued radiographic follow-up to resolution is recommended. Signer Name: Vu Lau MD Signed: 08/10/2020 9:17 AM Workstation Name: [id number]
[2020-08-10] MEDS ORDERED: CEFEPIME/NS 1 GM/100 ML 1 GM/100 ML BAG IV ONE (09:27)
[2020-08-10 09:40] LABS: Bilirubin,Urine NEG (Negative); Blood,Urine MOD (Negative); Color,Urine Straw (Yellow); Protein,Urine <15 mg/dL mg/dL (Negative); RBC,Urine < 1.0 /HPF (0.0-6.0); Urobilinogen,Urine < 2.0 mg/dL (<2.0)
[2020-08-10 09:48] LABS: Amphetamine Screen,Urine Negative; Benzodiazepines Screen,Urine Negative; Cocaine Screen,Urine Negative; Methadone Screen,Urine Negative; Opiate Screen,Urine Negative
[2020-08-10] MEDS ORDERED: VANCOMYCIN 1,250 MG in SODIUM CHLORIDE 0.9% 250ML 250 ML IV SCH (10:00)
[2020-08-10] MEDS ORDERED: VANCOMYCIN PHARMACY TO DOSE IV SCH (10:00)
[2020-08-10 10:31] LABS: Cannabinoid Screen,Urine Positive
[2020-08-10 11:17] VITALS: BP 151/94
[2020-08-10 11:34] LABS: Blood Urea Nitrogen 6 mg/dL (9-20); Calcium 7.4 mg/dL (8.4-10.2); Hemolysis Index 81
[2020-08-10 11:35] LABS: BUN/Creatinine Ratio 15
== END 2020-08-10 10:45 | disposition other institution (70) ==
LOC: ED 03:48
DX: J18.9 Pneumonia, unspecified organism (principal); G93.41 Metabolic encephalopathy; E87.1 Hypo-osmolality and hyponatremia; E87.8 Other disorders of electrolyte and fluid balance, not elsewhere classified; R41.82 Altered mental status, unspecified; F12.90 Cannabis use, unspecified, uncomplicated; Z98.2 Presence of cerebrospinal fluid drainage device
CPT/HCPCS: 31500; 36415; 70450; 71045; 80048; 80076; 80307; 81001; 82140; 82550; 82803; 82962; 85025; 85610; 85730; 87040; 87086; 93005; 94002; 96361; 96365; 96366; 96368; 96375; 99285; C9113; J0330; J0692; J1953; J2060; J2704; J3370; J7030; J7050; 80320; G0480